=== PATIENT | female | born 1930 | race Caucasian/White ===

== ENCOUNTER → 2017-02-09 | Day surgery (SDC) | payer OTHER ==
[~2017-02-09] MED LIST: ADACINJ3 IM; AMLO10TA2 PO; ASAC800T PO; ASPI81CH CHEW; BIOT50005 PO; CALC1TAB12 PO; COQ-100C2 PO; FLUT50SP EACH NARE; LACTATED RINGER'S 1,000 ML BAG IV ONE; LIDOCAINE HCL 1% 20 ML VIAL OTHER ONE; LISI-515 PO; NAPR375T PO; PNEU25IN IM; PROPOFOL 200 MG/20 ML AMP IV ONE; TRIAMCINOLONE ACETONIDE 40 MG/ML VIAL ONE; [UNRECOGNIZED DRUG - OTHER] T-DERMAL; [UNRECOGNIZED DRUG - SUPPLY]; [UNRECOGNIZED DRUG - SUPPLY] TD
--- NOTE | 2017-02-09 15:24 | TN ---
cc: MARIA INES KNIGHT M.D. DATE OF SURGERY: 02/09/2017 PREOPERATIVE DIAGNOSIS 1. Left hip osteoarthritis, arthrogryposis (hip stiffness). 2. History of poliomyelitis. POSTOPERATIVE DIAGNOSIS 1. Left hip osteoarthritis, arthrogryposis (hip stiffness). 2. History of poliomyelitis. PROCEDURE Left hip manipulation, intraarticular steroid injection, fluoroscopic guidance of needle under anesthesia. SURGEON Selena Knight MD [employer] Staff. SPECIMEN None. ESTIMATED BLOOD LOSS None. COMPLICATIONS None. ANESTHESIA TIVA. DRAINS None. CONDITION Stable. PLAN OF ACTIVITY Per orders. DETAILS OF PROCEDURE The patient was brought into the operating room and had satisfactory anesthesia by the Department of Anesthesia. The left hip and lower extremity was prepped and draped in the usual standard fashion. Under fluoroscopic guidance an 18-gauge spinal needle was introduced into the left hip joint. It was injected with 5 cc of 1% lidocaine and 1 cc of Kenalog 40. The needle was withdrawn. A Band-Aid was placed over the injection site. The hip was manipulated under anesthesia. Flexion was 110 degrees, abduction to 40 degrees, with good rotation. The patient tolerated the procedure well and arrived in the recovery room in stable and satisfactory condition. X-ray of the left hip, one view AP shows status post left hip manipulation, no obvious fracture, dislocation or subluxation. Left hip osteoarthritis. Satisfactory placement of 18-gauge spinal needle in the left hip joint. MD FRANCESCA Ochoa/GUCCI /3:04 PM /3:15 PM
== END | disposition home or self-care (01) ==
LOC: ESDC 13:39
PROVIDERS: ATTEND Orthopaedic Surgery Orthopaedic Surgery of the Spine
DX: M16.12 Unilateral primary osteoarthritis, left hip (principal); Q68.8 Other specified congenital musculoskeletal deformities; Z86.12 Personal history of poliomyelitis
CPT/HCPCS: 01200; 27275; 73501; 76000; J3301; J7120

== ENCOUNTER → 2017-10-05 | Day surgery (SDC) | payer OTHER ==
[~2017-10-05] MED LIST changes: +ASPI-516 CHEW; -ASPI81CH CHEW; -LACTATED RINGER'S 1,000 ML BAG IV ONE; +LACTATED RINGER'S 1000 ML INJ 1,000 ML ONE; -LIDOCAINE HCL 1% 20 ML VIAL OTHER ONE; +LIDOCAINE HCL 1% PF 30 ML VIAL ONE; +NAPR-855 PO; -NAPR375T PO; +ONDANSETRON HCL 4 MG/2 ML VIAL IV PUSH ONE
--- NOTE | 2017-10-05 15:19 | TN ---
cc: MARIA INES KNIGHT M.D. DATE OF SURGERY: 10/05/2017 PREOPERATIVE DIAGNOSIS Left hip osteoarthritis, arthrogryposis (hip stiffness). POSTOPERATIVE DIAGNOSIS Left hip osteoarthritis, arthrogryposis (hip stiffness). PROCEDURE Left hip intraarticular steroid injection, fluoroscopic guidance of needle under anesthesia, manipulation under anesthesia. SURGEON Selena Knight MD. [employer]PERATOR [employer] Staff. SPECIMEN None. ESTIMATED BLOOD LOSS None. ANESTHESIA General. DETAILS OF PROCEDURE The patient was brought into the operating room and had satisfactory anesthesia by the Department of Anesthesia. The left hip and lower extremity was prepped and draped in the usual sterile manner. Under fluoroscopic guidance an 18-gauge spinal needle was introduced into the left hip joint. The hip was injected with 1 cc of Kenalog 40 and 5 cc of 1% plain lidocaine. The needle was withdrawn. The hip was manipulated under anesthesia. Flexion to 120 degrees, good rotation. Abduction was to 240 degrees. A band-aid was placed over the injection site. The patient tolerated the procedure well and arrived in the recovery room in stable and satisfactory condition. X-ray left hip, one view AP, shows left hip severe osteoarthritis, status post hip manipulation, no obvious fracture dislocation or subluxation. Satisfactory placement of 18-gauge spinal needle in the left hip joint. MD FRANCESCA Ochoa/GUCCI /2:34 PM /3:00 PM
== END | disposition home or self-care (01) ==
LOC: ESDC 12:44
PROVIDERS: ATTEND Orthopaedic Surgery Orthopaedic Surgery of the Spine
DX: M16.12 Unilateral primary osteoarthritis, left hip (principal); Q68.8 Other specified congenital musculoskeletal deformities
CPT/HCPCS: 01200; 27275; 73501; 76000; J2405; J3010; J3301; J7120